=== PATIENT | female | born 1965 | race Asian ===

== ENCOUNTER 2022-03-23 08:33 | Outpatient (CLI) | payer OTHER, SELFPAY ==
[2022-03-23] VITALS (10 sets, daily range): BP systolic 89–121; BP diastolic 53–75; PULSE 16–86; RESP 15–100; TEMP 36.8; O2SAT 98–100
--- NOTE | 2022-03-23 08:34 | DI.RAD.S_ITS ---
PROCEDURE: PAIN C/T INTERLAMINAR INJECT INDICATIONS: SPINAL STENOSIS COMPARISON: [facility], MR, MR CERVICAL SPINE WITHOUT CONTRAST, 12/25/2021, 10:08. [facility], CR, XR CERVICAL SPINE WITH FLEXION EXTENSION, 12/01/2021, 13:18. FINDINGS: Fluoroscopic spot filming was performed to verify placement of a spinal needle at the C6-C7 level, as labeled on the films. Appropriate location of the needle tip was confirmed by injection of iodinated contrast. IMPRESSION: No significant intraprocedural abnormality. Dictated by: Victor Manuel Leonard M.D. on 03/23/2022 at 10:17 Approved by: Victor Manuel Leonard M.D. on 03/23/2022 at 10:17
[2022-03-23] MEDS: MIDAZOLAM 2 MG/2 ML VIAL IV (10:29)
[2022-03-23] MEDS: IOPAMIDOL 15 ML VIAL 3 ML INJ (10:34)
[2022-03-23] MEDS: DEXAMETHASONE 10 MG/ML VIAL 30 MG INJ (10:35)
[2022-03-23] MEDS: BUPIVACAINE 0.25% (PF) VIAL 2 ML INJ (10:35)
--- NOTE | 2022-03-23 10:47 | P.PCN_ITS ---
Date/Time/Diagnoses Date of procedure: 03/23/22 Time of procedure: 10:47 Pre-procedure diagnosis: 1. CERVICAL STENOSIS, 2. CERVICAL HNP WITH UPPER EXTREMITY RADICULAR FEATURES Post-procedure diagnosis: same Procedure Notes Procedure: 1. FLUORSCOPICALLY GUIDED CONTRAST CONTROLLED INTERLAMINAR EPIDURAL STEROID INJECTION - C6/7 TL SOFIA Indications: Christine is referred by Servando WEAVER for treatment of Cervical HNP with Upper Extremity Paresthesias. Physician: Jb Morton Total Fluoroscopy time (seconds): 25 Total sedation minutes: 13 Complications: none Procedure in detail & Post-procedure care: FINDINGS Cervical Stenosis due to disc deterioration and nerve root irritation and nerve root irritation DESCRIPTION OF PROCEDURE Fluoroscopically guided, contrast-controlled C6/7 translaminar epidural steroid injection with conscious sedation. Following review of allergy and review of potential side effects and complications, including, but not necessarily limited to, infection, allergic reaction, local tissue breakdown, temporary as well as permanent nerve injury, stroke, paralysis, and possible , the patient indicated that patient understood and agreed to proceed. An informed consent document was signed by the patient, witnessed by a nurse, and placed in the patient's chart. Additionally, other treatment options including modalities, medications, and physical therapy were reviewed with the patient. After review of previous anaesthesic history and IV conscious sedation the patient was deemed safe to proceed with today?s procedure with IV conscious sed ation as ASA class II designation. Safety time-out was performed to confirm patient ID, procedure to be performed and site of procedure. IV sedation was accomplished with a combination of 2mg of Versed administered by the RN after DO order, titrated to patient comfort during the course of the procedure while the patient remained responsive to all verbal commands. In the prone position, following sterile prep and drape of the cervical region, the C6/7 translaminar space was identified fluoroscopically. The skin was anesthetized via a 25-gauge 1.5-inch needle with 1% lidocaine solution. At this point, a 25-gauge, 2.5-inch short bevel spinal needle was atraumatically introduced and advanced under fluoroscopic guidance into epidural space at the C6/7 translaminar space. Depth was confirmed on lateral view. Radiological data, including multiple fluoroscopic views of the cervical spine, reveal a spinal needle at the C6/7 translaminar space. Lateral views then show placement of the needle in the epidural space. Subsequent views show contrast material flowing superiorly and inferiorly in the epidural space. DSA fluoroscopy with live contrast injection, once again, confirmed no vascular or intrathecal uptake. At this point, using loss of resistance technique with saline and air, the epidural space was entered. Following negative aspiration, injection of approximately 1.5 cc of Isovue-200 with live fluoroscopy in the AP view confirmed epidural flow in the epidural space without vascular or intrathecal uptake observed. Subsequently, a test dose of 1 cc of 1% lidocaine solution was injected and patient was observed for two minutes without signs or symptoms of complications, including abdominal pain, shortness of breath, bilateral upper or lower extremity weakness, nausea and vomiting, prior to steroid injection. At this point, 3cc or 30mg of dexamethasone was then injected without incident. The patient tolerated the procedure well without signs or symptoms of co mplications prior to being transferred to the recovery area for further monitoring, The patient was then transferred to the recovery area where they were observed for an appropriate period of time after the injection. The patient reported a VAS score of 6 prior to the procedure and a post-procedure VAS of 0. POST OP INSTRUCTIONS The patient was provided a Pain Log to continue to record their response to the target-specific procedure prior to follow-up visit with the referring provider. Additionally, specific post-injection care instructions and a contact number to our office were provided if concerns arise regarding possible complications associated with the procedure are suspected.
== END 2022-03-23 11:20 | disposition home or self-care (01) ==
PROVIDERS: PCP Nurse Practitioner; Referring Provider Physical Medicine & Rehabilitation; Visit Provider Physical Medicine & Rehabilitation
DX: M48.02 Spinal stenosis, cervical region (principal); M50.123 Cervical disc disorder at C6-C7 level with radiculopathy
CPT/HCPCS: 62321; 99152; J1100; J2250; J3490

== ENCOUNTER → 2025-04-05 14:12 | Outpatient (CLI) | payer OTHER, SELFPAY ==
--- NOTE | 2025-04-05 14:15 | DI.RAD.S_ITS ---
PROCEDURE: XR ANKLE RT MIN 3V INDICATIONS: pain at Lat Malleolus and distal tib/fib TECHNIQUE: 3 views of the ankle were acquired. COMPARISON: None. FINDINGS: Bones: Oblique nondisplaced distal fibular fracture at the level of the syndesmosis. Ankle mortise is intact Soft tissues: Moderate tibiotalar joint effusion. Achilles tendon appears normal. IMPRESSION: Oblique distal fibular fracture. Dictated by: Ankush Dumont M.D. on 04/05/2025 at 14:38 Approved by: Ankush Dumont M.D. on 04/05/2025 at 14:40
--- NOTE | 2025-04-05 14:15 | DI.RAD.S_ITS ---
PROCEDURE: XR TIBIA FUBULA RT 2V INDICATIONS: pain at Lat Malleolus and distal tib/fib TECHNIQUE: 2 views of the tibia and fibula were acquired. COMPARISON: [facility], CR, XR ANKLE RT MIN 3V, 04/05/2025, 14:12. FINDINGS: Bones: Nondisplaced oblique distal fibular fracture. Posterior calcaneal spur. Soft tissues: No suspicious soft tissue calcifications or masses. Tibiotalar effusion. IMPRESSION: Distal oblique fibular fracture Dictated by: Ankush Dumont M.D. on 04/05/2025 at 14:37 Approved by: Ankush Dumont M.D. on 04/05/2025 at 14:38
== END ==
LOC: RAD 14:14
PROVIDERS: PCP Nurse Practitioner; Referring Provider Nurse Practitioner; Visit Provider Chiropractor
DX: S93.401A Sprain of unspecified ligament of right ankle, initial encounter (principal); S82.434A Nondisplaced oblique fracture of shaft of right fibula, initial encounter for closed fracture; M77.31 Calcaneal spur, right foot; M25.471 Effusion, right ankle; X58.XXXA Exposure to other specified factors, initial encounter
CPT/HCPCS: 73590; 73610

== ENCOUNTER 2025-05-09 19:07 | Emergency (ER) | payer OTHER, SELFPAY ==
[2025-05-09] VITALS (8 sets, daily range): BP systolic 99–126; BP diastolic 54–66; PULSE 75–105; RESP 16; TEMP 37.2; O2SAT 93–99; BMI 23.0
--- NOTE | 2025-05-09 19:22 | DI.RAD.S_ITS ---
PROCEDURE: XR CHEST 1V INDICATIONS: Chest Pain TECHNIQUE: One view of the chest was acquired. COMPARISON: None. FINDINGS: Surgical changes and devices: Lower cervical spine postoperative change is seen. Lungs and pleura: Lungs are clear. No pleural effusions or pneumothorax. Mediastinum: Mediastinal contours appear normal. Heart size is normal. Bones and chest wall: No suspicious bony lesions. Age-appropriate bony degenerative changes are seen. Overlying soft tissues appear unremarkable. IMPRESSION: Unremarkable single-view chest study. Dictated by: Victor Manuel Leonard M.D. on 05/09/2025 at 19:03 Approved by: Victor Manuel Leonard M.D. on 05/09/2025 at 19:04
--- NOTE | 2025-05-09 19:22 | EKG_ITS ---
[facility] [address], [place] [address] Test Date: 2025-05-09 Pat Name: Christine Wallace Department: [facility] Room: Gender: Female Cement Paver: ONIEL HUNTLEY : 1965 Requested By: Order Number: [id number] Reading MD: Praveen Booth MD Measurements Intervals [place] Rate: 97 P: 66 VA: 148 QRS: 54 QRSD: 72 T: 74 QT: 366 QTc: 464 Interpretive Statements Normal sinus rhythm Electronically Signed On 05-10-2025 9:20:44 PST by Praveen Booth MD
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
--- NOTE | 2025-05-09 19:30 | DI.CT.S_ITS ---
PROCEDURE: CT ABDOMEN PELVIS WO CON INDICATIONS: right cva tenderness TECHNIQUE: Axial sections were acquired from the lung bases to the pubic symphysis. Coronal and sagittal reformats were performed. For radiation dose reduction, the following was used: automated exposure control, adjustment of mA and/or kV according to patient size. COMPARISON: [facility], CR, XR CHEST 1V, 05/09/2025, 19:35. FINDINGS: Image quality: Diagnostic. Lower Chest: No significant findings. URINARY: Right Kidney: No stones or hydronephrosis. Right Ureter: No hydroureter. Left Kidney: No stones or hydronephrosis. Left Ureter: No hydroureter. Bladder: Normal wall thickness. No stones. ABDOMEN: Liver: No contour-deforming solid mass. Gallbladder: No radiopaque gallstones or wall thickening. Biliary ducts: No biliary dilation. Pancreas: No ductal dilation. Spleen: Size is within normal limits. Adrenal Glands: No adrenal nodules. Stomach and Bowel: Normal colonic caliber, without significant wall thickening. Colonic diverticulosis is seen, without findings of active diverticulitis. No dilated loops of small bowel are seen. A normal appendix is noted. Peritoneum: No abnormal intraperitoneal fluid. No free air. Ventral Wall: No hernia. Abdominal Nodes: No enlarged retroperitoneal or mesenteric lymph nodes. Vessels: Aorta and inferior vena cava are normal in size. PELVIS: Pelvic Organs: No adnexal masses are seen on either side. Pelvic Nodes: Unremarkable. Miscellaneous: No inguinal hernias are seen. Bones: Unremarkable. IMPRESSION: No obstructing stones or hydronephrosis. Normal appendix. Additional findings: Diverticulosis, without active diverticulitis Dictated by: Victor Manuel Leonard M.D. on 05/09/2025 at 19:05 Approved by: Victor Manuel Leonard M.D. on 05/09/2025 at 19:06
--- NOTE | 2025-05-09 19:35 | PC.NURSE ---
pt c/o fever that started tonight, with left flank pain, pt denies any urinary s/s and states she does not feel like she has a UTI, flank is tender to palpation
[2025-05-09 19:40] LABS: Add Manual Diff / Slide Review NO; Hematocrit 36.0 % (36-46); Hemoglobin 12.5 g/dL (12.0-16.0); Lymphocytes Absolute Auto 1800 /uL (1100-4500); Mean Corpuscular HGB Conc 34.7 % (30-36); Mean Corpuscular Hemoglobin 30.6 PG (26-34); Mean Corpuscular Volume 88.1 fL (80-100); Platelet Count 289 X10^3/uL (150-400)
[2025-05-09] MEDS: SODIUM CHLORIDE 0.9% 1,000 ML 1000 ML IV (19:40)
[2025-05-09 19:52] LABS: INR 1.0 (0.9-1.3); Prothrombin Time 11.0 SECONDS (9.4-12.5)
[2025-05-09 19:55] LABS: PTT Partial Thromboplastin Tim 31 SECONDS (25.1-36.5)
[2025-05-09 19:57] LABS: Alanine Aminotransferase 18 IU/L (<35); Albumin 4.8 g/dL (3.5-5.0); Albumin Globulin Ratio 1.3 (1.0-2.8); Alkaline Phosphatase 70 U/L (38-126); Blood Urea Nitrogen 18 mg/dL (7-17); Calcium 9.5 mg/dL (8.4-10.2); Carbon Dioxide 21 mmol/L (22-32); Chloride 107 mmol/L (98-107); Creatine Kinase 77 U/L (30-135); Estimated Glomerular Filt Rate > 60 mL/min (>60); Globulin 3.7 g/dL (1.7-4.1); Glucose 118 mg/dL (70-99); HEMOLYSIS < 15 (0-50); Lipase 108 U/L (23-300); Magnesium 2.0 mg/dL (1.6-2.3); Potassium 4.0 mmol/L (3.4-5.1); Sodium 140 mmol/L (137-145); Total Protein 8.5 g/dL (6.3-8.2)
[2025-05-09 19:59] LABS: Culture Indicated Urine Specimen Cultured
[2025-05-09 20:08] LABS: NT-proBNP (BNP-Adult 18+) 25 pg/mL (<125); Troponin I < 0.012 ng/mL (0.01-0.034)
[2025-05-09] MEDS: KETOROLAC 30 MG/ML VIAL 15 MG IV (20:20)
== END 2025-05-09 22:17 | disposition home or self-care (01) ==
PROVIDERS: Emergency Provider Family Medicine; PCP Nurse Practitioner
DX: N39.0 Urinary tract infection, site not specified (principal); B96.20 Unspecified Escherichia coli [E. coli] as the cause of diseases classified elsewhere; K57.30 Diverticulosis of large intestine without perforation or abscess without bleeding
CPT/HCPCS: 36415; 71045; 74176; 80053; 81003; 81015; 82550; 83690; 83735; 83880; 84484; 85025; 85610; 85730; 87077; 87086; 87186; 93005; 93010; 96365; 96375; 99284; J0696; J1885; J7030; J7050